=== PATIENT | male | born 1945 | race Caucasian/White ===

== ENCOUNTER → 2019-11-01 | Outpatient (CLI) | payer OTHER ==
[~2019-11-01] MED LIST: ACETAMINOPHEN325 M1 PO; ACETAMINOPHEN650 M5 PO; ADULT LOW DOSE81 MG PO; CO Q-10400 MG PO; COQ-10100 MG PO; EFFIENT10 MG PO; FLUCONAZOLE 10100 MG PO; GLUCOPHAGE500 MG PO; IMDUR 30 MG TAB30 M1 PO; INDERAL40 MG PO; L-ARGININE PO; L-ARGININE500 M1 PO; LEVOTHYROXIN0.025 MG PO; LEVOTHYROXINE0.05 MG PO; LISINOPRIL5 MG PO; LORTAB 5-500 T1 EAC1 PO; MAGNESIUM PO; NEPHRO-VITE RX1 TA1 PO; NIACIN FLUSH F PO; OCUVITE TABLET1 EAC1 PO; PACERONE 200 M200 M1 PO; SIMVASTATIN20 MG PO; TOPROL XL50 MG PO; VIAGRA50 MG PO; VIRT-VITE TABL1 EACH PO; VITAMIN D35000 UNI1 PO; VITAMIN D400 UNI1 PO; XANAX 0.5 MG0.5 MG PO; XARELTO10 MG PO; [UNRECOGNIZED DRUG - OTHER] PO; [UNRECOGNIZED DRUG - OTHER] PO; [UNRECOGNIZED DRUG - OTHER] PO; [UNRECOGNIZED DRUG - OTHER] PO
== END ==
LOC: SJCVCIMAG 09:10
DX: I25.10 Atherosclerotic heart disease of native coronary artery without angina pectoris (principal); I48.91 Unspecified atrial fibrillation; I10 Essential (primary) hypertension; E78.00 Pure hypercholesterolemia, unspecified; Z95.810 Presence of automatic (implantable) cardiac defibrillator; Z79.82 Long term (current) use of aspirin; Z79.899 Other long term (current) drug therapy

== ENCOUNTER → 2019-11-08 | Outpatient (CLI) | payer OTHER ==
[~2019-11-08] VITALS: Ht 185.4 cm; Wt 120.2 kg
[~2019-11-08] MED LIST changes: +UNITHROID75 MCG PO; +XANAX 0.5 MG0.5 M1 PO
[2019-11-08 08:50] VITALS: BP 155/83
[2019-11-08 09:15] LABS: HEMATOCRIT 39.8 % (42.0-52.0); HEMOGLOBIN 13.5 gm/dL (14.0-18.0); MCH 32.2 pg (26.0-34.0); MCHC 33.8 g/dL (28.0-37.0); MCV 95.3 fL (80.0-100.0); RBC 4.18 mil/uL (4.50-6.00); RDW 14.7 % (10.5-14.5); WBC 4.5 thou/uL (4.0-11.0)
[2019-11-08 09:23] LABS: ANION GAP 6 mmol/L (7-16); BUN 18 mg/dL (7-18); CALCIUM 8.7 mg/dL (8.5-10.1); CHLORIDE 105 mmol/L (98-107); CO2 28 mmol/L (21-32); CREATININE 1.1 mg/dL (0.7-1.3); GLUCOSE 107 mg/dL (74-106); POTASSIUM 4.5 mmol/L (3.5-5.1); SODIUM 139 mmol/L (136-145)
[2019-11-08 09:29] LABS: CHOLESTEROL 122 mg/dL (<200); HDL CHOLESTEROL 51 mg/dL (>40); LDL CHOLESTEROL 49 mg/dL (<100); TC:HDL 2.4 Ratio (Not establshd); TRIGLYCERIDE 113 mg/dL (<150); VLDL 23 mg/dL (<40)
--- NOTE | 2019-11-08 13:22 | CATHLAB ---
[facility] [place] [address] INVASIVE PROCEDURE REPORT Name: CHRIS MEADOWS Room #: PRE [facility].#: [id number] Admission: Attend Phys: Nolan Hill MD Discharge: Date of : 43 Report #: [id number] THIS REPORT FOR: cc: Yong Leal MD, Steven D. MD Park, Jin S. MD ~ APPROVED REPORT Study performed: 11/08/2019 09:21:40 Patient Details Patient Status: Out-Patient Room #: The patient is a 73 year-old male Event Personnel Nolan Hill Bulldogger, Franci Ho Monitor, Beryl Kapadia RT(R)() Nanci Pino Marie RN RN, Stuart Muse RN reagent tender helper Performed Art Access - R femoral artery* 64400 Initial Mod Sed Same Phys/QHP Gr5y 493946 91954 Mod Sed Same Phys/QHP Ea 080640 Left Heart Cath Coronaries, Bypass Grafts [id number] LHCCORCABG Hemostasis with Manual pressure Indication Dyspnea, Positive stress test Risk Factors Hypercholesterolemia, Coronary Artery DiseaseHypertension, Diabetes Previous Procedures/Diagnoses Previous CABGPrevious PCI Procedure Narrative The patient was brought electively to the Cardiac Catheterization Laboratory and was prepped and draped in a sterile manner. The Right Groin^ was infiltrated with 1% Lidocaine subcutaneous anesthesia. A PINNACLE 4FR Sheath #[id number] sheath was inserted into the RFA^. Coronary angiography was performed using coronary diagnostic catheters. The right coronary system was accessed and visualized with a JR 4 catheter. The left coronary system was accessed and visualized with a JL 4 catheter. The left ventricle was accessed and visualized with a Pigtail catheter. Left ventricular/Aortic Valve gradient [facility] [address] [place] [address] INVASIVE PROCEDURE REPORT Name: DORICHRIS Room #: [facility]#: [id number] Admission: Attend Phys: Nolan Hill MD Discharge: Date of : 43 Report #: [id number] assessed via catheter pullback. Hemostasis was obtained with manual pressure following sheath removal without any complications. The patient tolerated the procedure well and there were no complications associated with the procedure. There was no hematoma. Intraoperative Conscious Sedation Sedation start time: 09:50 Case end Time: 10:29 Fentanyl 50.0 mcg Versed 1.0 mg Fluoro Time: 8.50 minutes Dose: DAP 09644.00 cGycm2 1835 mGy Contrast Type and Amount: Omnipaque 90 ml Coronary Angiography The patient's coronary anatomy is right dominant. Diagnostic Cath Left Main This is a large-caliber vessel with mild plaquing distally. LAD There is a stent in the proximal LAD extending into the the first diagonal artery, patent with mild restenosis. There is a severe occlusion in the LAD just after the takeoff of the first diagonal artery. There is a patent MENSAH graft with an end-to-side anastomosis to the mid LAD. Diagonal 1 As above, there is a patent stent in the proximal LAD extending into the first diagonal artery with mild restenosis. Circumflex Left circumflex artery is occluded proximally. OM1 There is a patent T graft off the JOSELIN with a uhjg-sq-[id number] anastomosis to OM1 and an end-to-side anastomosis to OM 2. This graft is patent with no flow-limiting lesions. Right Coronary The RCA is a dominant vessel with a total occlusion proximally. R PDA There is a patent free radial artery conduit with a end-to-side anastomosis to the PDA. After the anastomosis, there is also retrograde blood flow to the distal RCA and fills a patent RPL branch. Left Ventriculography Left Ventriculography was not performed. Ejection Fraction was 60-65% based off patient's Nuclear Cardiac Stress Test. An LVEDP was measured and there is no gradient across the outflow tract. Hemodynamics [facility] [address] [place] [address] INVASIVE PROCEDURE REPORT Name: CHRIS MEADOWS Room #: [facility]#: [id number] Admission: Attend Phys: Nolan Hill MD Discharge: Date of : 43 Report #: [id number] The aortic pressure is 147/85 mmHg with a mean of 109 mmHg. The left ventricular pressure is 139/16 mmHg with a mean of mmHg. The left ventricular end diastolic pressure is 18 mmHg. Conclusion 1. There is a patent stent in the proximal LAD extending into the first diagonal artery. 2. There is a patent MENSAH graft to the mid LAD. 3. There is a patent T graft off the JOSELIN to OM1 and OM 2. 4. There is a patent free radial artery conduit to the PDA, with retrograde filling of an RPL branch. 5. Normal RV systolic function. 6. Recommend aggressive risk factor management. <ELECTRONICALLY SIGNED> By: Nolan Hill MD 11/08/191319 19 19 Nolan Hill MD /INF
--- NOTE | 2019-11-08 13:25 | NUR ---
PT AMBULATES FROM ROOM 3 TO BR, THEN TURNS AND WALKS LENGTH OF YUNG OF CV HOLDING AND BACK TO ROOM. NO DIFFICULTIES. DENIES SOA, NO ISSUES WITH GROIN DRESSING.
--- NOTE | 2019-11-08 13:44 | NUR ---
AMBULATES LENGTH OF CV HOLDING HALLWAY WITHOUT ANY INCIDENCE TO GROIN. PT DENIES ANY SYMPTOMS WITH AMBULATION.
== END | disposition home or self-care (01) ==
LOC: CATH 08:34
PROVIDERS: Internal Medicine Cardiovascular Disease
DX: R94.39 Abnormal result of other cardiovascular function study (principal); R06.00 Dyspnea, unspecified; I10 Essential (primary) hypertension; I42.9 Cardiomyopathy, unspecified; E11.9 Type 2 diabetes mellitus without complications; E78.00 Pure hypercholesterolemia, unspecified; Z98.890 Other specified postprocedural states; Z79.899 Other long term (current) drug therapy; Z87.891 Personal history of nicotine dependence; Z95.1 Presence of aortocoronary bypass graft; Z79.82 Long term (current) use of aspirin; Z82.49 Family history of ischemic heart disease and other diseases of the circulatory system; Z88.0 Allergy status to penicillin

== ENCOUNTER → 2019-11-23 | Outpatient (CLI) | payer OTHER | LOC: SJCVC 11:52 | DX: R94.31 Abnormal electrocardiogram [ECG] [EKG] (principal); I48.91 Unspecified atrial fibrillation; I10 Essential (primary) hypertension; E78.00 Pure hypercholesterolemia, unspecified; I25.810 Atherosclerosis of coronary artery bypass graft(s) without angina pectoris; E78.5 Hyperlipidemia, unspecified; Z95.1 Presence of aortocoronary bypass graft; Z95.810 Presence of automatic (implantable) cardiac defibrillator; Z79.82 Long term (current) use of aspirin; Z79.84 Long term (current) use of oral hypoglycemic drugs; Z79.899 Other long term (current) drug therapy; Z87.891 Personal history of nicotine dependence ==

== ENCOUNTER → 2020-05-18 | Outpatient (CLI) | payer OTHER | LOC: SJCVC 10:58 | PROVIDERS: ATTEND Internal Medicine Cardiovascular Disease | DX: I44.0 Atrioventricular block, first degree (principal); I25.810 Atherosclerosis of coronary artery bypass graft(s) without angina pectoris; I10 Essential (primary) hypertension; E78.00 Pure hypercholesterolemia, unspecified; I48.91 Unspecified atrial fibrillation; I48.92 Unspecified atrial flutter; M10.9 Gout, unspecified; E78.5 Hyperlipidemia, unspecified; Z95.810 Presence of automatic (implantable) cardiac defibrillator; Z95.1 Presence of aortocoronary bypass graft; Z79.82 Long term (current) use of aspirin; Z79.84 Long term (current) use of oral hypoglycemic drugs; Z79.899 Other long term (current) drug therapy; Z87.891 Personal history of nicotine dependence ==

== ENCOUNTER → 2020-11-13 | Outpatient (CLI) | payer OTHER | LOC: SJCVCIMAG 08:41 | PROVIDERS: ATTEND Internal Medicine Cardiovascular Disease | DX: R94.31 Abnormal electrocardiogram [ECG] [EKG] (principal); I11.9 Hypertensive heart disease without heart failure; I48.91 Unspecified atrial fibrillation; I25.10 Atherosclerotic heart disease of native coronary artery without angina pectoris; E78.00 Pure hypercholesterolemia, unspecified; E78.5 Hyperlipidemia, unspecified; E11.9 Type 2 diabetes mellitus without complications; I48.92 Unspecified atrial flutter; M19.90 Unspecified osteoarthritis, unspecified site; M17.0 Bilateral primary osteoarthritis of knee; I42.9 Cardiomyopathy, unspecified; M10.9 Gout, unspecified; Z95.1 Presence of aortocoronary bypass graft; Z88.0 Allergy status to penicillin; Z95.810 Presence of automatic (implantable) cardiac defibrillator; Z86.16 Personal history of COVID-19; Z79.899 Other long term (current) drug therapy; Z79.82 Long term (current) use of aspirin; Z79.84 Long term (current) use of oral hypoglycemic drugs; Z87.891 Personal history of nicotine dependence; Z72.89 Other problems related to lifestyle ==

== ENCOUNTER → 2021-05-16 | Outpatient (CLI) | payer OTHER | LOC: SJCVC 09:34 | PROVIDERS: ATTEND Internal Medicine Cardiovascular Disease | DX: R94.31 Abnormal electrocardiogram [ECG] [EKG] (principal); I44.0 Atrioventricular block, first degree; I25.10 Atherosclerotic heart disease of native coronary artery without angina pectoris; I48.91 Unspecified atrial fibrillation; I10 Essential (primary) hypertension; E78.00 Pure hypercholesterolemia, unspecified; R60.9 Edema, unspecified; M10.9 Gout, unspecified; E78.5 Hyperlipidemia, unspecified; Z95.810 Presence of automatic (implantable) cardiac defibrillator; Z79.82 Long term (current) use of aspirin; Z79.84 Long term (current) use of oral hypoglycemic drugs; Z79.899 Other long term (current) drug therapy; Z88.0 Allergy status to penicillin; Z87.891 Personal history of nicotine dependence; Z72.89 Other problems related to lifestyle ==

== ENCOUNTER → 2021-05-30 | Outpatient (CLI) | payer OTHER ==
--- NOTE | 2021-06-09 14:31 | PFR/MVV ---
[facility] [place] [address] PULMONARY FUNCTION MVV/REPORT Name: CHRIS MEADOWS Room #: REG [facility].#: [id number] Admission: 05/30/21 Attend Phys: Nolan Hill MD Discharge: Date of : 43 Report #: [id number] THIS REPORT FOR: //name// >> SPIROMETRY: (BTPS) Height: 72 in cm Weight: 246 lbs 246 kg Exam Date: 05/30/21 PRE-RX POST-RX PRED BEST %PRED BEST %PRED %CHG FVC LITERS . 4.51 . 4.83 . 107 . 4.87 . 108 . 1 FEV1 LITERS . 2.93 . 3.22 . 110 . 3.24 . 110 . 0 FEV1/FVC % . 66 . 67 . 101 . 67 . 100 . -0 DPB14-98% L/Sec . 2.48 . 2.05 . 83 . 2.03 . 82 . -1 PEF L/SEC . 8.53 . 5.52 . 65 . 5.01 . 59 . -9 FEF50/FIF50 UNITLESS . 4.19 . 3.16 . 75 . 2.92 . 70 . -8 MVV L/Min . 127 . . f 1/Min . . . >> LUNG VOLUMES: (BTPS) PRE-RX POST-RX PRED AVG %PRED AVG %PRED %CHG VC Liters . 4.51 . 5.51 . 122 . . . TLC Liters . 6.90 . 6.94 . 101 . . . RV Liters . 2.78 . 1.43 . 51 . . . RV/TLC % . 43 . 21 . 48 . . . FRC PL Liters . 3.55 . 2.79 . 79 . . . FRC N2 Liters . 3.55 . . . . . ERV Liters . 1.55 . 0.95 . 61 . . . IC Liters . 3.1 . 4.15 . 134 . . . >> DIFFUSION: DLCO ml/Min/mmHg . 24.8 . 28.2 . 114 . . . DL Tono ml/Min/mmHg . 24.8 . 28.2 . 114 . . . DLCO/VA ml/Min/mmHg . 3.37 . 3.91 . 116 . . . VA Liters . . 7.23 . . . . COMMENTS: COMMENTS: >> RESISTANCE: [facility] [address] [place] [address] PULMONARY FUNCTION MVV/REPORT Name: CHRIS MEADOWS Pretty Room #: [facility]#: [id number] Admission: 05/30/21 Attend Phys: Nolan Hill MD Discharge: Date of : 43 Report #: [id number] PRE-RX PRED AVG %PRED Raw Total cmH20/L/Sec . . 4.98 . Raw Insp cmH20/L/Sec . . 2.71 . Raw Exp cmH20/L/Sec . . 2.55 . Raw cmH20/L/Sec . 1.27 . 3.90 . 308 Gaw L/Sec/cmH20 . 0.852 . 0.257 . 30 sRaw cmH20 Sec . 4.49 . 15.81 . 352 sGaw l/cmH20 Sec . 0.223 . 0.063 . 28 Vtq Liters . . 4.06 . # = OUTSIDE 95% CONFIDENCE INTERVAL CALIBRATION: PRED: 3.00 ACTUAL: EXP 3.01 INSP 3.02 [facility]- [id number] >> INTERPRETATION/IMPRESSION: DATE OF SERVICE: 05/30/2021 PULMONARY FUNCTION STUDIES ATTENDING PHYSICIAN: Dr. Hill. PULMONARY FUNCTION STUDIES: FEV1 is 3.22 liters (110% predicted), FVC is 4.83 liters (107% predicted), FEV1/FVC ratio is 67%. There is no significant response to bronchodilator therapy. LUNG VOLUMES: Total lung capacity is 6.94 liters (101% predicted). RV is 1.43 liters (51% predicted). Diffusing capacity is 114%. IMPRESSION: Pulmonary function studies are consistent with normal pulmonary function. There is no obstructive nor restrictive airflow defect. Diffusing capacity is normal. <ELECTRONICALLY SIGNED> By: Oswaldo Fitzpatrick MD 06/09/21 1431 Oswaldo Fitzpatrick MD /nt
== END ==
LOC: PUL 10:50
PROVIDERS: ATTEND Internal Medicine Cardiovascular Disease
DX: Z20.822 Contact with and (suspected) exposure to COVID-19 (principal); I48.91 Unspecified atrial fibrillation